=== PATIENT | male | born 1990 | race Asian ===

== ENCOUNTER 2019-08-14 22:34 | Emergency (ER) | payer OTHER ==
[~2019-08-14] VITALS: Ht 167.6 cm; Wt 97.5 kg
[2019-08-14 22:47] VITALS: BP 163/99
--- NOTE | 2019-08-14 22:52 | NUR ---
PT TAKEN TO BED 9
--- NOTE | 2019-08-14 22:58 | NUR ---
29 Y/O MALE C/O RT KNEE PAIN S/P KNEE LOCKING UP WHEN PLAYING BASKETBALL AT 2020 TONIGHT. PT STATES HE FELT A POP WHEN HE LANDED FROM A JUMP. PT STATES HE CANNOT BARE WEIGHT NOR AMBULATE AT THIS TIME. +SWELLING AND BRUISING NOTED TO KNEE. PT STATES HE TOOK 1000MG IBURPROFEN AT 2100 WITH NO PAIN RELIEF. 9/10 ACHING TO KNEE. PT ABLE TO MOVE EXTREMITY. CAP REFILL <2 SEC. PT LAYING IN BED CALM AND PLEASANT FRIEND AT BEDSIDE. VSS MEDHX: DENIES ALLERGIES: NKA
--- NOTE | 2019-08-14 23:08 | NUR ---
XRAY AT BEDSIDE.
--- NOTE | 2019-08-14 23:14 | NUR ---
Dr. Hurtado examining patient.
--- NOTE | 2019-08-14 23:54 | NUR ---
PT RESTING IN BED CALM AND PLEASANT. VSS. WILL CONTINUE TO MONITOR.
[2019-08-15] MEDS ORDERED: HYDROcodone/APAP 5/325 MG 1 TAB TAB PO ONE (00:20)
--- NOTE | 2019-08-15 01:10 | NUR ---
KNEE IMMOBILZER SIZE LRG FASTENED ON PT R LEG. +CSM
--- NOTE | 2019-08-15 02:12 | NUR ---
PT RESTING IN BED WITH EYES CLOSED. VISIBLE RISE AND FALL OF THE CHEST. NO COMPLAINTS OF PAIN AT THIS TIME. VSS. WILL CONTINUE TO MONITOR.
--- NOTE | 2019-08-15 02:40 | NUR ---
REPORT CALLED TO RONALD CONNOLLY AT [facility]. RONALD AT [facility] MADE AWARE OF PT TRANSFER. PT TO ROOM 491B AT [place].
--- NOTE | 2019-08-15 03:04 | NUR ---
[facility] TRANSPORT AT BEDSIDE
--- NOTE | 2019-08-15 03:09 | NUR ---
Patient to be transferred to [facility]. Is being transferred due to HIGHER LEVEL OF CARE. Receiving facility has accepting physician and available space. ER physician has signed transfer form. Patient or responsible constitution party has agreed to transfer and signed form. Patient belongings inventoried and will be sent with patient. Copy of nursing notes, lab reports, EKG, Physicians Orders and X-rays to be sent with patient. Report called to RONALD CONNOLLY at receiving facility. [facility] ambulance service has been called for transfer.
[2019-08-15 03:11] VITALS: BP 144/86
== END 2019-08-15 03:09 | disposition short-term general hospital (02) ==
LOC: MED 22:34
DX: S72.491A Other fracture of lower end of right femur, initial encounter for closed fracture (principal); S82.191A Other fracture of upper end of right tibia, initial encounter for closed fracture; W19.XXXA Unspecified fall, initial encounter; Y93.67 Activity, basketball; Y92.89 Other specified places as the place of occurrence of the external cause; Y99.8 Other external cause status
CPT/HCPCS: 29505; 73562; 99285